=== PATIENT | male | born 1990 | race African-American/Black ===

== ENCOUNTER 2021-05-05 22:35 | Emergency (ER) | payer OTHER ==
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
[2021-05-05] MEDS ORDERED: IV RINGERS SOLUTION,LACTATED 1,000 ML IV SCH (23:30)
[2021-05-05 23:55] LABS: ALBUMIN 1.7 g/dL (3.4-5.0); ALK PHOS 45 U/L (46-116); ALT (SGPT) 1357 U/L (16-63); ANION GAP 22 (6-14); AST (SGOT) 877 U/L (15-37); BLOOD UREA NITROGEN 9 mg/dL (8-26); CALCIUM 7.8 mg/dL (8.5-10.1); CARBON DIOXIDE 14 mmol/L (21-32); CHLORIDE 106 mmol/L (98-107); CREATININE 0.4 mg/dL (0.7-1.3); DIRECT BILIRUBIN 0.1 mg/dL (0.0-0.2); GFR > 300.0; GLUCOSE 492 mg/dL (70-99); MAGNESIUM 1.8 mg/dL (1.8-2.4); SODIUM 142 mmol/L (136-145); TOTAL BILIRUBIN 0.3 mg/dL (0.2-1.0); TOTAL PROTEIN 3.4 g/dL (6.4-8.2)
[2021-05-05 23:56] LABS: BASO % 1 % (0-3); EOS # 0.2 x10^3/uL (0.0-0.7); EOS % 3 % (0-3); HEMATOCRIT 30.7 % (39.0-53.0); HEMOGLOBIN 9.3 g/dL (13.0-17.5); LYMPH # 4.5 x10^3/uL (1.0-4.8); LYMPH % 57 % (24-48); MEAN CORPUSCULAR HEMOGLOBIN 27 pg (25-35); MEAN CORPUSCULAR HGB CONC 30 g/dL (31-37); MEAN CORPUSCULAR VOLUME 90 fL (79-100); MONO # 0.2 x10^3/uL (0.0-1.1); MONO % 2 % (0-9); NEUT % 38 % (31-73); PLATELET COUNT 99 x10^3/uL (140-400); RED BLOOD COUNT 3.43 x10^6/uL (4.30-5.70); RED CELL DISTRIBUTION WIDTH 15.2 % (11.5-14.5); WHITE BLOOD COUNT 7.8 x10^3/uL (4.0-11.0)
[2021-05-06 00:01] LABS: POTASSIUM 6.3 mmol/L (3.5-5.1)
[2021-05-06 00:18] LABS: % EOS 2 % (0-5); % LYMPHS 89 % (24-48); % MONOS 3 % (0-10); % SEGS 6 % (35-66); PLT ESTIMATE DECREASED (ADEQUATE)
[2021-05-06] MEDS ORDERED: methylPREDNISolone SOD SUCC PF 125 MG/2 ML VIAL. IV ONE (02:30)
[2021-05-06] MEDS ORDERED: NITROGLYCERIN OINT 1 GM PACKET. TP ONE (02:30)
[2021-05-06] MEDS ORDERED: FUROSEMIDE 20 MG/2 ML VIAL IVP ONE (02:30)
[2021-05-06] MEDS ORDERED: IPRATRPIUM/ALBUTEROL 0.5/2.5MG 3 ML NEBU. NEB ONE (02:30)
[2021-05-06] MEDS ORDERED: ASPIRIN CHEWABLE 81 MG TABLET. PO ONE (02:30)
== END 2021-05-06 02:51 ==
LOC: EEVIPCON 22:35 → ER 22:35
DX: I46.9 Cardiac arrest, cause unspecified (principal); Z20.822 Contact with and (suspected) exposure to COVID-19
CPT/HCPCS: 36415; 80048; 80076; 82550; 83735; 83880; 84484; 85007; 85025; 87040; 92950; 99285; G0480; U0003; 85379; 85610; 85730; 87205